=== PATIENT | female | born 1960 | race African-American/Black ===

== ENCOUNTER 2016-09-06 20:40 | Emergency (ER) | payer OTHER ==
[~2016-09-06] VITALS: Ht 170.2 cm; Wt 91.2 kg
--- NOTE | ~2016-09-06 | EKG ---
[place] [address] [facility] [place] [address] ELECTROCARDIOGRAM REPORT Name: NATALIIA WALKER [id number] Admission: 09/06/16 Attend Phys: Discharge: 09/06/16 Date of : 58 Report #: [id number] THIS REPORT FOR: //name// [facility] ED Test Date: 2016-09-06 Test Time: 20:45:21 Pat Name: NATALIIA WALKER Department: Room: Gender: F Dovetailer: ALEXEY : 1960 Requested By: Darling Mason Order Number: [id number] MD: Aníbal Mueller Measurements Intervals [place] Rate: 84 P: 43 MN: 178 QRS: -30 QRSD: 94 T: 46 QT: 389 QTc: 460 Interpretive Statements Sinus rhythm Probable left atrial enlargement Left axis deviation Anterior infarct, old No previous ECG available for comparison Electronically Signed On 09-07-2016 7:57:21 CDT by Aníbal Mueller [email or web address] <ELECTRONICALLY SIGNED> By: Aníbal Mueller MD, [facility] 09/07/16 0757 2045 44 Aníbal Mueller MD, FACC /EPI
[2016-09-06] MEDS ORDERED: LISINOPRIL40 MG PO (21:35)
[2016-09-06] MEDS ORDERED: HYDROCHLOROTHIA25 M2 PO (21:35)
[2016-09-06] MEDS ORDERED: NORVASC2.5 MG PO (21:36)
[2016-09-06 21:50] LABS: ABSOLUTE NEUTROPHILS 1.8 thou/uL (1.4-8.2); EOSINOPHILS 3.5 % (0.0-3.0); HEMATOCRIT 36.4 % (37.0-47.0); HEMOGLOBIN 12.3 gm/dL (12.0-15.0); LYMPHOCYTES 46.2 % (24.0-44.0); MANUAL DIFF NO; MCH 29.7 pg (26.0-34.0); MCHC 33.9 g/dL (28.0-37.0); MCV 87.5 fL (80.0-100.0); PLATELET COUNT 218 thou/uL (150-400); POLYS 43.3 % (36.0-66.0); RBC 4.15 mil/uL (4.20-5.00); RDW 13.6 % (10.5-14.5); WBC 4.2 thou/uL (4.0-11.0)
[2016-09-06 21:57] LABS: ANION GAP 11 mmol/L (7-16); BUN 15 mg/dL (7-18); CHLORIDE 108 mmol/L (98-107); CO2 25 mmol/L (21-32); CREATININE 1.2 mg/dL (0.6-1.0); GLUCOSE 153 mg/dL (74-106); POTASSIUM 3.3 mmol/L (3.5-5.1); SODIUM 144 mmol/L (136-145)
[2016-09-06 22:05] LABS: TROPONIN-I < 0.04 ng/mL (<0.04-0.07)
[2016-09-06 23:32] VITALS: BP 148/83
== END 2016-09-06 23:45 | disposition home or self-care (01) ==
LOC: ER 20:40
PROVIDERS: Emergency Medicine
DX: R07.89 Other chest pain (principal); R06.00 Dyspnea, unspecified

== ENCOUNTER 2020-04-08 18:18 | Emergency (ER) | payer BC, OTHER ==
[~2020-04-08] VITALS: Ht 170.2 cm; Wt 88.5 kg
[~2020-04-08 18:18] MED LIST: HYDROCHLOROTHIA25 M2 PO; LISINOPRIL40 MG PO; NORVASC2.5 MG PO
[2020-04-08] MEDS ORDERED: CYCLOBENZAPRINE5 MG PO (20:51)
[2020-04-08] MEDS ORDERED: MOBIC15 MG PO (20:51)
[2020-04-08 21:31] VITALS: BP 144/66
== END 2020-04-08 21:33 | disposition home or self-care (01) ==
LOC: ER 18:18
DX: M54.2 Cervicalgia (principal); M54.6 Pain in thoracic spine; I10 Essential (primary) hypertension; Z79.899 Other long term (current) drug therapy; V49.9XXA Car occupant (driver) (passenger) injured in unspecified traffic accident, initial encounter; Y93.89 Activity, other specified; Y92.89 Other specified places as the place of occurrence of the external cause; Y99.8 Other external cause status